=== PATIENT | male | born 1975 | race American Indian/Alaskan Native ===

== ENCOUNTER 2019-03-09 13:05 | Emergency (ER) | payer SELFPAY ==
[2019-03-09 13:36] VITALS: BP 157/105
[2019-03-09] MEDS ORDERED: amLODIPine 5 MG TAB PO ONE (13:55)
--- NOTE | 2019-03-09 14:06 | Emergency Department Report ---
ED General Adult HPI - General Chief complaint: Medical Clearance Stated complaint: DIZZY Time Seen by Provider: 03/09/19 13:55 Source: patient Mode of arrival: Ambulatory Limitations: No Limitations - History of Present Illness Initial comments: CC: "My blood pressure was high." HPI: Mr. Toribio is a 44 yo male with hx of methamphetamine abuse since the who presents to the ER from [facility] for dizziness and elevated blood pressure. He was medically cleared at [facility] in [facility] before being referred to [facility]. Last use of methamphetamine 24 hours ago. No hx of opioid type medication. Currently symptom free. Denies fainting, chest pain, palpitations. Denies headache. No previous history of el evated blood pressure. -: Gradual, This morning Severity scale (0 -10): 0 Consistency: now resolved Improves with: none Worsens with: none Associated Symptoms: denies other symptoms - Related Data Previous Rx's Medication Instructions Recorded Last Taken Type amLODIPine [Norvasc] 5 mg PO DAILY 14 Days #14 tab 03/09/19 Unknown Rx Allergies Allergy/AdvReac Type Severity Reaction Status Date / Time No Known Allergies Allergy Verified 03/09/19 13:36 ED Review of Systems ROS: Stated complaint: DIZZY Other details as noted in HPI Comment: All other systems reviewed and negative Constitutional: denies: fever, malaise Respiratory: denies: cough Cardiovascular: denies: chest pain Neurological: denies: headache, weakness, numbness, paresthesias ED Past Medical Hx - Past Medical History Previous Medical History?: No - Surgical History Past Surgical History?: Yes Additional Surgical History: Splenectomy - Social History Smoking Status: Current Every Day Smoker Substance Use Type: Marijuana, Methamphetamines - Medications Home Medications: Home Medications Medication Instructions Recorded Confirmed Last Taken Type amLODIPine [Norvasc] 5 mg PO DAILY 14 Days #14 tab 03/09/19 Unknown Rx ED Physical Exam - General Limitations: No Limitations General appearance: alert, in no apparent distress - Head Head exam: Present: atraumatic, normocephalic - Eye Eye exam: Present: normal appearance - ENT ENT exam: Present: mucous membranes moist - Neck Neck exam: Present: normal inspection, full ROM - Respiratory Respiratory exam: Present: normal lung sounds bilaterally. Absent: respiratory distress, wheezes, rales, rhonchi - Cardiovascular Cardiovascular Exam: Present: regular rate, normal rhythm, normal heart sounds. Absent: systolic murmur, diastolic murmur, rubs, gallop - GI/Abdominal GI/Abdominal exam: Present: soft, normal bowel sounds. Absent: distended, tenderness, guarding, rebound - Rectal Rectal exam: Present: deferred - Extremities Exam Extremities exam: Present: normal inspection - Back Exam Back exam: Present: normal inspection - Neurological Exam Neurological exam: Present: alert, oriented X3 - Psychiatric Psychiatric exam: Present: normal affect, normal mood - Skin Skin exam: Present: warm, dry, intact, normal color. Absent: rash ED Course Vital Signs 03/09/19 13:35 Temperature 98.2 F Pulse Rate 102 H Respiratory 18 Rate Blood Pressure 157/105 [Right] O2 Sat by Pulse 96 Oximetry ED Medical Decision Making - Medical Decision Making Mr. Toribio presents with elevated blood pressure and transient dizziness. No indication of TIA or ACS. Mr. Toribio declined lab draw. He explained that labs were not necessary for his return to [facility]. Labs are not indicated with his presentation. I have prescribed amlodipine 5 mg tablets. First dose provided in the emergency department. Mr. Toribio is medically clear for psychiatric care. Discharged to self-care. Recommended to return to [facility] for further treatment Critical care attestation.: If time is entered above; I have spent that time in minutes in the direct care of this critically ill patient, excluding procedure time. ED Disposition Clinical Impression: Drug dependence, abuse, Elevated blood pressure reading Disposition: DC-01 TO HOME OR SELFCARE Is pt being admited?: No Does the pt Need Aspirin: No Condition: Stable Additional Instructions: You will need to have your blood pressure check after you finish your drug treatment program. Prescriptions: amLODIPine [Norvasc] 5 mg PO DAILY 14 Days #14 tab Referrals: ROSE MARY CHOWDARY MD [Staff Physician] - 7-10 days
== END 2019-03-09 15:42 | disposition home or self-care (01) ==
LOC: ED 13:05
DX: F15.20 Other stimulant dependence, uncomplicated (principal); R03.0 Elevated blood-pressure reading, without diagnosis of hypertension; R42 Dizziness and giddiness; F17.200 Nicotine dependence, unspecified, uncomplicated; Z79.899 Other long term (current) drug therapy